=== PATIENT | male | born 1945 | race Caucasian/White ===

== ENCOUNTER 2020-03-24 03:05 | Outpatient (CLI) | payer OTHER, SELFPAY ==
[2020-03-24 18:39] LABS: SARS-CoV-2 RNA PCR Negative
== END 2020-03-24 03:06 | disposition home or self-care (01) ==
LOC: ANHCOVIDDT 03:05
PROVIDERS: PCP Family Medicine; Visit Provider Internal Medicine Gastroenterology
DX: Z01.812 Encounter for preprocedural laboratory examination (principal); Z11.59 Encounter for screening for other viral diseases
CPT/HCPCS: 87635; C9803; U0003

== ENCOUNTER 2020-03-26 01:34 | Day surgery (SDC) | payer OTHER, SELFPAY ==
[2020-03-19 13:52] VITALS: BMI 21.4
[2020-03-26 06:19] VITALS: BP 151/70; PULSE 64; RESP 20; TEMP 36; O2SAT 97
[2020-03-26] MEDS: LACTATED RINGERS 1,000 ML 150 ML IV CONT (06:31)
--- NOTE | 2020-03-26 07:11 | PM.HPGS ---
History of Present Illness History of Present Illness Consent: Risks, benefits, and alternatives have been discussed and questions answered. Patient agrees to proceed with procedure. Chief complaint: Neoplasm Screening Narrative: Coy Weber is a 75 year old male Here for screening colonoscopy. He has a history of polyps for PMFSH Past Medical History Medical History (Updated 03/26/20 @ 07:13 by Faizan Luz MD) Elevated PSA Surgical History Surgical History (Updated 06/12/19 @ 10:34 by Shanell De Leon PA-C) S/P hernia repair Family History Family History Father Diabetes mellitus, Onset Age: 66 Family history of chronic obstructive pulmonary disease, Onset Age: 6 Family history of malignant neoplasm Family history of heart disease in male family member before age 55 Family history of coronary artery disease Mother Family history of primary malignant neoplasm of liver, Onset Age: 86 Family history of malignant neoplasm of breast, Onset Age: 86 Family history of heart disease in male family member before age 55 Family history of malignant neoplasm of breast in first degree relative Social History Social History Smoking packs per day: 2 Smoking cigarettes per day: 40.0 Smoking status: Former smoker Tobacco type: cigarettes Second hand tobacco smoke exposure: No Smoking end date: 07/02/98 Alcohol intake: current Drinks per week: 10 Alcohol use details: RED WINE Substance use: former Substance use type: marijuana Last use: COLLEGE Living arrangements: with family Gender identity (if verbalized by the patient): Male Spiritual care concerns: No Meds Home Medications and Allergies Home Medications Medication Instructions Recorded Confirmed Type fluticasone propionate 50 2 spray NASAL DAILY 06/12/19 03/19/20 History mcg/actuation nasal spray,suspension tamsulosin 0.4 mg capsule 0.4 mg PO DAILY #90 cap 06/12/19 03/19/20 Rx lisinopril 30 mg tablet 30 mg PO DAILY #90 tablet 12/22/19 03/19/20 Rx finasteride 5 mg tablet 5 mg PO DAILY 12/24/19 03/19/20 History Allergies Allergy/AdvReac Type Severity Reaction Status Date / Time pollen extracts Allergy Unknown allergic Verified 03/26/20 06:17 rhinitis Vital Signs Vital Signs - 24 hr 03/26/20 06:19 Temperature 36.0 C L Pulse Rate 64 Respiratory Rate 20 Blood Pressure 151/70 H Pulse Oximetry 97 Exam Resp: Auscultation: clear to auscultation bilaterally Cardio: Rate: regular rate Rhythm: regular rhythm GI: GI Palp: Yes Soft to palpation and No Tenderness to palpation present (GI) Assessment and Plan Assessment and plan (1) Colon cancer screening: Code(s): Z12.11 - Encounter for screening for malignant neoplasm of colon Status: Acute Assessment and Plan: Colonoscopy with possible biopsy or polypectomy or cautery or injection of substances.
--- NOTE | 2020-03-26 07:13 | WPDANESEPPF ---
Anes - Initial Pre Proc Eval Procedure: Operation Date: 03/26/20 07:30 Proposed Procedures p Screening Colonoscopy - Faizan Luz MD Date/Time: 03/26/20 07:13 Surgeon: Faizan Luz MD Pre Op Diagnosis: Neoplasm Screening Patient Data Age: 75 Gender: M Height: 5 ft 8 in Weight: 65.7 kg Last Vital Signs Temp 96.8 F L 03/26/20 06:19 Pulse 64 03/26/20 06:19 Resp 20 03/26/20 06:19 BP 151/70 H 03/26/20 06:19 Pulse Ox 97 03/26/20 06:19 Allergies Allergy/AdvReac Type Severity Reaction Status Date / Time pollen extracts Allergy Unknown allergic Verified 03/26/20 06:17 rhinitis Home Medications Medication Instructions Recorded Confirmed Type fluticasone propionate 50 2 spray NASAL DAILY 06/12/19 03/19/20 History mcg/actuation nasal spray,suspension tamsulosin 0.4 mg capsule 0.4 mg PO DAILY #90 cap 06/12/19 03/19/20 Rx lisinopril 30 mg tablet 30 mg PO DAILY #90 tablet 12/22/19 03/19/20 Rx finasteride 5 mg tablet 5 mg PO DAILY 12/24/19 03/19/20 History Patient hx anesthesia problems: none Family hx anesthesia problems: none [facility] Past Medical History Medical History (Updated 03/26/20 @ 07:13 by Faizan Luz MD) Elevated PSA Surgical History Surgical History (Updated 06/12/19 @ 10:34 by Shanell De Leon PA-C) S/P hernia repair Family History Family History Father Diabetes mellitus, Onset Age: 66 Family history of chronic obstructive pulmonary disease, Onset Age: 6 Family history of malignant neoplasm Family history of heart disease in male family member before age 55 Family history of coronary artery disease Mother Family history of primary malignant neoplasm of liver, Onset Age: 86 Family history of malignant neoplasm of breast, Onset Age: 86 Family history of heart disease in male family member before age 55 Family history of malignant neoplasm of breast in first degree relative Social History Social History Smoking packs per day: 2 Smoking cigarettes per day: 40.0 Smoking status: Former smoker Tobacco type: cigarettes Second hand tobacco smoke exposure: No Smoking end date: 07/02/98 Alcohol intake: current Drinks per week: 10 Alcohol use details: RED WINE Substance use: former Substance use type: marijuana Last use: COLLEGE Living arrangements: with family Gender identity (if verbalized by the patient): Male Spiritual care concerns: No Anes - Eval Final PreProcedure Day of Procedure 03/26/20 07:13 Patient weight: normal Heart: regular rate and rhythm Lungs: clear to auscultation Airway: Mallampati scale class II Neurological: alert and oriented Last oral intake: >/= 8 hours ASA classification: III Emergent: no Anesthetic plan: proceed Anesthesia type and monitoring: general GIVS and standard monitoring Informed Consent: The patient's anesthetic plan and its attendant risks and benefits were discussed with the patient/family/POA. Questions were solicited and answers provided to the satisfaction of the patient/family/POA.
[2020-03-26 07:47] VITALS: BP 129/41; PULSE 51; RESP 12; O2SAT 100
[2020-03-26 07:57] VITALS: BP 126/42; PULSE 51; RESP 12; O2SAT 100
[2020-03-26 08:07] VITALS: BP 138/50; PULSE 49; RESP 13; O2SAT 100
== END 2020-03-26 08:27 | disposition home or self-care (01) ==
PROVIDERS: PCP Family Medicine; Visit Provider Internal Medicine Gastroenterology
PROC: 0DJD8ZZ Inspection of Lower Intestinal Tract, Via Natural or Artificial Opening Endoscopic (ICD-10-PCS; CPT 45378; principal; 2020-03-26 07:30)
DX: Z12.11 Encounter for screening for malignant neoplasm of colon (principal); D12.5 Benign neoplasm of sigmoid colon; K57.30 Diverticulosis of large intestine without perforation or abscess without bleeding; Z87.891 Personal history of nicotine dependence
CPT/HCPCS: 45380; 87635; 88305; C9803; J2704; J7120; U0003

== ENCOUNTER 2022-06-12 14:21 | Emergency (ER) | payer OTHER, SELFPAY ==
[2022-06-12 14:26] VITALS: BP 123/83; PULSE 78; RESP 18; TEMP 36.8; O2SAT 98
--- NOTE | 2022-06-12 14:59 | ED.MALEGU ---
HPI - Male Genitourinary General Chief complaint: Urogenital-Male Stated complaint: BURNING URINATION Time Seen by Provider: 06/12/22 14:39 Source: patient Mode of arrival: ambulatory Limitations: no limitations History of Present Illness HPI Narrative: Patient presents today complaining of 4 day history of dysuria, hematuria, frequency. States symptoms are more present in the afternoon and evening then in the morning. Denies abdominal pain, back pain, fever. He has been drinking cranberry juice. History of BPH. Related Data Home Medications Medication Instructions Recorded Confirmed fluticasone propionate 50 2 spray intranasal DAILY 06/12/19 02/09/22 mcg/actuation nasal spray,suspension finasteride 5 mg tablet 5 mg PO DAILY 12/24/19 02/09/22 Allergies Allergy/AdvReac Type Severity Reaction Status Date / Time pollen extracts Allergy Unknown allergic Verified 02/09/22 13:21 rhinitis Review of Systems Review of Systems: CONSTITUTIONAL: Denies body aches, fever, chills, or sweats. EYES: Denies visual changes, redness, or discharge. ENT: Denies rhinorrhea, congestion, sore throat, or otalgia. CARDIOVASCULAR: Denies chest pain, palpitations, or edema. RESPIRATORY: Denies cough or dyspnea. GASTROINTESTINAL: Denies abdominal pain, nausea, vomiting, or diarrhea. GENITOURINARY: + hematuria, frequency, dysuria SKIN: Denies rash, itching, or wounds. MUSCULOSKELETAL: Denies back pain, joint pain, or myalgia. NEUROLOGIC: Denies headache, numbness, tingling, or weakness. PSYCH: Denies depression or anxiety. [facility] Past Medical History Medical History Elevated PSA Surgical History Surgical History S/P hernia repair Family History Family History Father Diabetes mellitus, Onset Age: 66 Family history of chronic obstructive pulmonary disease, Onset Age: 6 Family history of malignant neoplasm Family history of heart disease in male family member before age 55 Family history of coronary artery disease Mother Family history of primary malignant neoplasm of liver, Onset Age: 86 Family history of malignant neoplasm of breast, Onset Age: 86 Family history of heart disease in male family member before age 55 Family history of malignant neoplasm of breast in first degree relative Social History Social History Smoking packs per day: 2 Smoking cigarettes per day: 40.0 Smoking status: Former smoker Tobacco type: cigarettes Second hand tobacco smoke exposure: No Smoking end date: 07/02/98 Alcohol intake: current Drinks per week: 10 Alcohol use details: RED WINE Substance use: former Substance use type: marijuana Last use: COLLEGE Gender identity (if verbalized by the patient): Male Spiritual care concerns: No Comments At time of signature, I have reviewed and agree with nursing past medical, surgical, social and family history unless otherwise noted. Please see nursing chart for further information. There is no relevant family history pertinent to the presenting complaint Exam Narrative: GENERAL: Well-appearing, well-nourished, and in no acute distress. HEAD: Normocephalic, atraumatic. EYES: EOMI. No redness or drainage. Conjunctivae normal. ENT: Mucous membranes pink and moist. NECK: Normal AROM. CHEST: No respiratory distress. Clear to auscultation. HEART: Regular rate and rhythm. No murmur appreciated. Normal peripheral pulses. ABDOMEN: Soft, nontender, nondistended, normal active bowel sounds. -CVAT MUSCULOSKELETAL: No bony tenderness. EXTREMITIES: Normal range of motion. No edema. SKIN: Warm, dry, no rash. Capillary refill normal. Normal skin turgor. NEURO: No focal deficits. Alert and oriented x3. Gait steady. PSYCH: N
== END 2022-06-12 15:06 | disposition home or self-care (01) ==
PROVIDERS: Emergency Provider Nurse Practitioner; PCP Family Medicine
DX: N30.01 Acute cystitis with hematuria (principal); Z87.891 Personal history of nicotine dependence
CPT/HCPCS: 81003; 87086; 99213; G0463

== ENCOUNTER 2024-06-12 10:33 | Outpatient (CLI) | payer OTHER, SELFPAY ==
[2024-06-12 11:13] LABS: Add Urine Microscopic? NO; Appearance Urine Clear (Clear); Bilirubin Urine Negative (Negative); Blood Urine Negative (Negative); Color Urine Yellow (Yellow); Glucose Urine UA Negative (Negative); Ketones Urine Negative (Negative); Leukocyte Esterase Ur Negative LEU/UL (Negative); Nitrate Urine Negative (Negative); Protein Urine Negative (Negative); Specific Grav Ur 1.012 (1.001-1.035); Urobilinogen Urine 0.2 mg/dL (<2.0); pH Urine 5.5 (5.0-9.0)
== END 2024-06-12 10:34 | disposition home or self-care (01) ==
PROVIDERS: PCP Family Medicine; Visit Provider Family Medicine
DX: N39.0 Urinary tract infection, site not specified (principal)
CPT/HCPCS: 81003